=== PATIENT | male | born 1980 | race Caucasian/White ===

== ENCOUNTER 2016-07-08 10:56 | Emergency (ER) | payer OTHER ==
[~2016-07-08 10:56] MED LIST: ACYCLOVIR400 MG PO; ADULT TUSS100 MG/5 M PO; ALL DAY ALLERGY10 MG PO; AMOXICILLIN PO; BACTRIM DS TABL1 TA1 PO; BENTYL10 MG PO; BENTYL20 MG PO; CIPRO PO; CIPROFLOXACIN500 M1 PO; DICYCLOMINE HCL20 MG PO; DILANTIN; DILANTIN KAPSE100 MG PO; DILANTIN PO; DOXYCYCLINE PO; FLAGYL PO; FLAGYL250 M1 PO; FLEXERIL PO; FLEXERIL10 MG; FLEXERIL10 MG PO; KEFLEX PO; KETOPROFEN PO; LEVSIN0.125 M3 PO; LORTAB 10-5001 EACH PO; LORTAB 5/500 TA1 TA1 PO; MEDROL DOSEPAK4 MG PO; MEDROL PO; MOBIC; MOBIC7.5 MG/5 M PO; MOTRIN600 M1 PO; NAPROXEN PO; NEURONTIN300 MG PO; NO MEDICATIONS; NORCO 10-325 TA1 TAB PO; OMEPRAZOLE20 M1 PO; ORUDIS75 M1 PO; PEN-VEE K PO; PHENERGAN PO; PHENERGAN25 M1 PO; PHENERGAN25 MG PO; PRILOSEC20 M1 PO; PYRIDIUM PO; RISPERDAL2 MG PO; TRAMADOL HCL50 M1 PO; TYLENOL #3 PO; VIBRAMYCIN100 M1 DOB; VICODIN PO; VOLTAREN75 MG PO; ZANTAC PO; ZITHROMAX1 G/PKT PO; ZOFRAN PO; ZOLOFT50 MG PO
== END 2016-07-08 11:01 | disposition home or self-care (01) ==
LOC: CFTX 10:56
DX: S46.911A Strain of unspecified muscle, fascia and tendon at shoulder and upper arm level, right arm, initial encounter (principal); X58.XXXA Exposure to other specified factors, initial encounter
CPT/HCPCS: 99283

== ENCOUNTER → 2016-07-21 | Outpatient (CLI) | payer OTHER ==
--- NOTE | ~2016-07-21 | MR165 ---
[facility] A Service of [facility] RADIOLOGY TEXT RESULTS PATIENT: CECY HUGHES LOCATION: [facility] : [birth year] UNIT #: [id number] AGE: [address]: Ozzy Post MD SEX: M ORDER DR: [id number] [id number] O MR#: [id number] Acc #: [id number] NAME: CECY HUGHES : 1980 SEX: M STUDY DATE/TIME: 07/21/2016 9:24 UNIT: [facility] ROOM: STUDY DESCRIPTION: MR Shoulder Wo Contrast Rt Attending Physician: Ozzy Post M.D. Referring Physician: Ozzy Post M.D. Ordering Physician: Ozzy Post M.D. Primary Care Physician: Generic Doctor Not In System MRI CENTER REPORT This report is preliminary unless electronic signature is present. EXAM MRI of the right shoulder without contrast HISTORY 35-year-old male complains of right shoulder pain and limited range of motion, decreased strength times 5-6 months. FINDINGS Multiplanar multiecho imaging was performed of the right shoulder utilizing a high field magnet and dedicated protocol. Bone structure and alignment appears normal. No focal marrow edema. The rotator cuff appears intact without evidence of tear. No significant tendinopathy. There is a small amount of subacromial-subdeltoid bursal fluid most likely within normal limits. There is a moderate amount of nonspecific edema along the posterior-superior shoulder superior to the superior labrum and superficial to the posterior labrum and glenoid. This extends from approximately the 12 o'clock to the 3 o'clock axis of the shoulder. There is some high T2 signal within the substance of the superior labrum but no definite communication to the articular surface to suggest a labral detachment or labral tear. Biceps anchor and long tendon of the biceps appears intact. This edema is nonspecific but could represent a component of capsulitis though this is typically more diffuse. The edema and fluid lies deep to the rotator cuff supraspinatus and infraspinatus musculature. The anterior and posterior labrum are unremarkable. Articular cartilage appears normal. The deltoid and extraarticular soft tissues appear normal. IMPRESSION Moderate amount of nonspecific edema overlying the superior and posterior shoulder primarily superior to the superior labrum and along the posterior joint capsule posterior-superior quadrant. Etiology unclear but suggest local inflammatory process possibly representing localized capsulitis. [facility] A Service of [facility] RADIOLOGY TEXT RESULTS PATIENT: CECY HUGHES LOCATION: [facility] : 78 UNIT #: [id number] AGE: [address]: Ozzy Post MD SEX: M ORDER DR: This does not appear to be associated with a true labral tear or detachment, though there is some abnormal signal within the substance of the superior labrum which could represent a type 2 SLAP tear but no distinct communication to the articular surface is identified. If clinically warranted, further evaluation with MR arthrogram may be of benefit. Dictated by... Addy Cabrera M.D. THIS IS AN ELECTRONICALLY VERIFIED REPORT Addy Cabrera M.D. at 07/22/2016 1:58 PM Caitlin TD: 07/21/2016 14:16 JOB #: [id number] MRI CENTER REPORT Page 1 of 1
== END | disposition home or self-care (01) ==
LOC: SMRI 08:37
DX: M25.511 Pain in right shoulder (principal); M75.51 Bursitis of right shoulder; R60.0 Localized edema
CPT/HCPCS: 73221